=== PATIENT | male | born 1950 | race Hispanic/Latino ===

== ENCOUNTER 2023-10-21 02:02 | Inpatient (IN) | payer SELFPAY ==
[~2023-10-21] VITALS: Ht 175.3 cm; Wt 84.3 kg
[2023-10-21] VITALS (47 sets, daily range): BP systolic 108–183; BP diastolic 60–91; PULSE 75–104; RESP 5–25; TEMP 97.9–98.5; O2SAT 95–100
[2023-10-21 08:58] LABS: HEMATOCRIT 33.8 % (42-54); MEAN CORPUSCULAR HEMOGLOBIN 31.1 pg (27.0-33.0); MEAN CORPUSCULAR HGB CONC 32.8 g/dL (32.0-36.0); MEAN CORPUSCULAR VOLUME 94.7 fL (79-99); RED BLOOD CELL COUNT(AUTO) 3.57 MIL/uL (4.50-6.20); RED CELL DISTRIBUTION WIDTH 14.6 % (11.0-15.5); WHITE BLOOD COUNT (AUTO) 7.3 K/uL (4.8-10.8)
[2023-10-21 09:11] LABS: INR 1.01 (0.85-1.15); PROTHROMBIN TIME 10.9 SEC (9.6-11.6)
[2023-10-21 09:12] LABS: PARTIAL THROMBOPLASTIN TIME 29.7 SEC (26.3-35.5)
[2023-10-21 09:16] LABS: ALBUMIN 2.7 g/dL (3.5-5.0); POTASSIUM 4.2 mmol/L (3.5-5.1); TOTAL PROTEIN, SERUM 6.9 g/dL (6.0-8.3)
[2023-10-21 10:47] LABS: HEMOGLOBIN A1C 5.6 % (4.0-6.0)
[2023-10-21] MEDS ORDERED: acetaMINOPHEN 500 MG TABLET PO PRN (11:00)
[2023-10-21] MEDS ORDERED: POTASSIUM CHLORIDE 20MEQ/100ML 100 ML IV PRN (11:00)
[2023-10-21 11:21] LABS: THYROID STIMULATING HORMONE 115.33 uIU/mL (0.36-3.74)
[2023-10-21] MEDS: levoTHYROxine VIAL 100MCG IV SCH (13:55)
[2023-10-21] MEDS ORDERED: ISOS30TA92 PO (13:56)
[2023-10-21] MEDS ORDERED: NIFE-78 PO (13:56)
[2023-10-21] MEDS ORDERED: CARV6.25 PO (13:56)
[2023-10-21] MEDS ORDERED: AEC81 PO (13:56)
[2023-10-21] MEDS ORDERED: ATOR20TA65 PO (13:56)
[2023-10-21] MEDS ORDERED: RANO500T6 PO (13:56)
[2023-10-21] MEDS: ceFAZolin SODIUM 1 GM VIAL ONE (16:20)
[2023-10-21] MEDS ORDERED: SUCCINYLCHOLINE CHLORIDE 20 MG/ML 10 ML VIAL ONE ×2 (16:25→16:27)
[2023-10-21] MEDS ORDERED: dexaMETHasone SOD PHOSPHATE 10MG/ML 1ML VIAL ONE (16:25)
[2023-10-21] MEDS ORDERED: LIDOCAINE PF 100MG/5ML (2%) SYRINGE 5ML ONE (16:25)
[2023-10-21] MEDS ORDERED: NEOSTIGMINE METHYLSULFATE 1MG/ML IV ONE (16:26)
[2023-10-21] MEDS ORDERED: FENTanyl CITRate PF 50 MCG/1 ML 2ML VIAL ONE ×2 (16:26→17:07)
[2023-10-21] MEDS ORDERED: GLYCOPYRROLATE 0.2 MG/ML 5 ML VIAL ONE (16:26)
[2023-10-21] MEDS ORDERED: proPOFol 10 MG/ML 20ML VIAL IV ONE (16:26)
[2023-10-21] MEDS ORDERED: ETOMIDATE 20MG VIAL ONE (16:27)
[2023-10-21] MEDS ORDERED: rocuRONium bROMide 10MG/1ML 5ML VL ONE (16:27)
[2023-10-21] MEDS ORDERED: traMADol HCL 50 MG TABLET PO PRN (16:30)
[2023-10-21] MEDS ORDERED: ONDANSETRON 4MG INJ ONE (17:03)
[2023-10-21] MEDS ORDERED: hydrALAZine 20MG/ML VIAL ONE (17:12)
[2023-10-21] MEDS: traMADol HCL 50 MG TABLET PO PRN (17:36)
[2023-10-21 17:50] LABS: PH, BODY FLUID 8
[2023-10-21 17:52] LABS: APPEARANCE BODY FLUID TURBID (CLEAR); COLOR,BODY FLUID RED (LT YELLOW); SPECIMENTYPE,BODY FLUID PERICARDIAL; TOTAL VOLUME,BODY FLUID 42 mL
[2023-10-21 18:02] LABS: BODY FLUID RBC 326707 /cu. mm.; BODY FLUID WBC 325 /cu. mm.
[2023-10-21 18:03] LABS: AMYLASE,BODY FLUID 32 U/L; GLUCOSE,BODY FLUID 71 mg/dL (1-40); TOTAL PROTEIN,BODY FLUID 5.1 g/dL
[2023-10-21 18:48] LABS: BF LYMPHOCYTE 26 %; BF MONOCYTE 8 %; BF TOTAL CELLS COUNTED 100
[2023-10-21] MEDS: FAMOTIDINE 20MG VIAL IV SCH (21:37)
[2023-10-21] MEDS: atorVAStatin 20 MG TABLET PO SCH (21:37)
[2023-10-21] MEDS: acetaMINOPHEN 325 MG TAB PO PRN (21:37)
[2023-10-22] VITALS (67 sets, daily range): BP systolic 96–187; BP diastolic 60–88; PULSE 91–115; RESP 10–29; TEMP 97.5–211.8; O2SAT 95–97
[2023-10-22] MEDS: ceFAZolin SODIUM 2 GM VIAL IVPB SCH (00:09)
[2023-10-22] MEDS: PROMETHAZINE HCL 25 MG/ML 1ML AMPULE IM PRN (02:15)
[2023-10-22 04:52] LABS: BASOPHILS # (AUTO) 0.02 K/uL (0.00-0.20); BASOPHILS % (AUTO) 0.1 % (0.0-5.0); HEMATOCRIT 39.7 % (42-54); IMMATURE GRANULOCYTE ABSOLUTE 0.16 K/uL (0-1); LYMPHOCYTES # (AUTO) 0.6 K/uL (1.0-4.8); MEAN CORPUSCULAR HEMOGLOBIN 30.1 pg (27.0-33.0); MEAN CORPUSCULAR VOLUME 91.3 fL (79-99); MONOCYTES # (AUTO) 1.3 K/uL (0.1-1.0); MONOCYTES % (AUTO) 9.4 % (3.0-13.0); NEUTROPHILS # (AUTO) 11.8 K/uL (1.8-7.7); NEUTROPHILS % (AUTO) 85.3 % (40.0-77.0); PLATELET COUNT (AUTO) 286 K/uL (130-400); RED BLOOD CELL COUNT(AUTO) 4.35 MIL/uL (4.50-6.20); RED CELL DISTRIBUTION WIDTH 14.6 % (11.0-15.5); WHITE BLOOD COUNT (AUTO) 13.8 K/uL (4.8-10.8)
[2023-10-22 05:12] LABS: ALBUMIN 2.8 g/dL (3.5-5.0); BILIRUBIN,TOTAL 1.3 mg/dL (0.2-1.0); CREATININE 1.1 mg/dL (0.5-1.3); MAGNESIUM 1.9 mg/dL (1.80-2.40); POTASSIUM 4.5 mmol/L (3.5-5.1); TOTAL PROTEIN, SERUM 7.4 g/dL (6.0-8.3)
[2023-10-22 05:45] LABS: B-TYPE NATRIURETIC PEPTIDE 218 pg/mL (0-100)
[2023-10-22] MEDS ORDERED: acetaMINOPHEN 500 MG TABLET PO PRN (08:30)
[2023-10-22] MEDS: ASPIRIN 81MG CHEW TAB PO SCH (08:41)
[2023-10-22] MEDS: carVEDIlol 6.25 MG TABLET PO SCH (08:42)
[2023-10-22] MEDS: HYDROcodone/APAP 5/325 1 TAB TABLET PO PRN (08:44)
[2023-10-22] MEDS ORDERED: ASPIRIN 81 MG EC TAB PO SCH (09:00)
[2023-10-22] MEDS ORDERED: ENOXAPARIN SODIUM 40 MG/0.4 ML SYRINGE SQ SCH (09:00)
[2023-10-22] MEDS: RANOLAZINE 500 MG TAB.SR.12H PO SCH (09:30)
[2023-10-22] MEDS: ISOSORBIDE MONO 30MG SR TAB PO SCH (09:30)
[2023-10-22] MEDS: hydroCORTisone SOD SUCCINATE 100 MG/2 ML VIAL IV SCH (13:14)
[2023-10-22] MEDS ORDERED: atorVAStatin 20 MG TABLET PO SCH (21:00)
[2023-10-22] MEDS: tamSULOsin HCL 0.4 MG CAP.ER.24H PO SCH (21:02)
[2023-10-23] VITALS (12 sets, daily range): BP systolic 124–158; BP diastolic 73–90; PULSE 65–99; RESP 13–22; TEMP 97.4–98.4; O2SAT 94–96
[2023-10-23 04:59] LABS: BASOPHILS # (AUTO) 0.03 K/uL (0.00-0.20); BASOPHILS % (AUTO) 0.2 % (0.0-5.0); IMMATURE GRANULOCYTE ABSOLUTE 0.26 K/uL (0-1); LYMPHOCYTES # (AUTO) 0.7 K/uL (1.0-4.8); MEAN CORPUSCULAR HEMOGLOBIN 30.3 pg (27.0-33.0); MEAN CORPUSCULAR HGB CONC 32.5 g/dL (32.0-36.0); MEAN CORPUSCULAR VOLUME 93.3 fL (79-99); MONOCYTES # (AUTO) 1.9 K/uL (0.1-1.0); MONOCYTES % (AUTO) 11.1 % (3.0-13.0); NEUTROPHILS # (AUTO) 14.4 K/uL (1.8-7.7); NEUTROPHILS % (AUTO) 83.2 % (40.0-77.0); PLATELET COUNT (AUTO) 255 K/uL (130-400); RED BLOOD CELL COUNT(AUTO) 3.86 MIL/uL (4.50-6.20); RED CELL DISTRIBUTION WIDTH 14.3 % (11.0-15.5); WHITE BLOOD COUNT (AUTO) 17.3 K/uL (4.8-10.8)
[2023-10-23 05:20] LABS: ALBUMIN 2.3 g/dL (3.5-5.0); CREATININE 1.5 mg/dL (0.5-1.3); MAGNESIUM 1.9 mg/dL (1.80-2.40); POTASSIUM 4.5 mmol/L (3.5-5.1); THYROID STIMULATING HORMONE 55.75 uIU/mL (0.36-3.74)
[2023-10-23] MEDS: MAGNESIUM 2GM PREMIX 50ML 50 ML IV PRN (05:49)
[2023-10-23] MEDS: NIFEDIPINE ER 30 MG TAB PO SCH (09:15)
[2023-10-23] MEDS: doCUSate SODIUM 100 MG CAP PO ONE (12:01)
[2023-10-23] MEDS: LACTULOSE 20 GM/30 ML UDCUP PO ONE (12:01)
[2023-10-23] MEDS: polyETHYLene GLYCol 3350 17 GM POWD.PACK PO ONE (12:02)
[2023-10-23] MEDS: LACTULOSE 20 GM/30 ML UDCUP PO PRN (17:55)
[2023-10-24] VITALS (10 sets, daily range): BP systolic 111–130; BP diastolic 62–72; PULSE 78–90; RESP 14–20; TEMP 97.7–98.5; O2SAT 97–100
[2023-10-24 04:05] LABS: BASOPHILS # (AUTO) 0.03 K/uL (0.00-0.20); BASOPHILS % (AUTO) 0.2 % (0.0-5.0); HEMATOCRIT 35.7 % (42-54); IMMATURE GRANULOCYTE ABSOLUTE 0.34 K/uL (0-1); LYMPHOCYTES # (AUTO) 0.6 K/uL (1.0-4.8); LYMPHOCYTES % (AUTO) 3.9 % (21.0-51.0); MEAN CORPUSCULAR HEMOGLOBIN 30.6 pg (27.0-33.0); MEAN CORPUSCULAR HGB CONC 33.9 g/dL (32.0-36.0); MEAN CORPUSCULAR VOLUME 90.4 fL (79-99); MONOCYTES # (AUTO) 0.9 K/uL (0.1-1.0); MONOCYTES % (AUTO) 5.8 % (3.0-13.0); NEUTROPHILS # (AUTO) 13.8 K/uL (1.8-7.7); NEUTROPHILS % (AUTO) 87.9 % (40.0-77.0); PLATELET COUNT (AUTO) 267 K/uL (130-400); RED BLOOD CELL COUNT(AUTO) 3.95 MIL/uL (4.50-6.20); RED CELL DISTRIBUTION WIDTH 14.2 % (11.0-15.5); WHITE BLOOD COUNT (AUTO) 15.7 K/uL (4.8-10.8)
[2023-10-24 04:31] LABS: ALBUMIN 2.3 g/dL (3.5-5.0); BILIRUBIN,TOTAL 0.6 mg/dL (0.2-1.0); CREATININE 1.2 mg/dL (0.5-1.3); POTASSIUM 4.6 mmol/L (3.5-5.1); TOTAL PROTEIN, SERUM 7.1 g/dL (6.0-8.3)
[2023-10-24] MEDS: polyETHYLene GLYCol 3350 17 GM POWD.PACK PO SCH (08:11)
[2023-10-24] MEDS: BisaCODYL 10 MG SUPP.RECT RC PRN (18:12)
[2023-10-24] MEDS: FAMOTIDINE 20MG TAB PO SCH (20:22)
[2023-10-25] VITALS (7 sets, daily range): BP systolic 108–132; BP diastolic 65–78; PULSE 62–76; RESP 18; TEMP 97.8–98.4; O2SAT 96–97
[2023-10-25 03:48] LABS: BASOPHILS # (AUTO) 0.02 K/uL (0.00-0.20); BASOPHILS % (AUTO) 0.1 % (0.0-5.0); HEMATOCRIT 30.6 % (42-54); IMMATURE GRANULOCYTE ABSOLUTE 0.28 K/uL (0-1); LYMPHOCYTES # (AUTO) 0.7 K/uL (1.0-4.8); LYMPHOCYTES % (AUTO) 5.1 % (21.0-51.0); MEAN CORPUSCULAR HEMOGLOBIN 30.3 pg (27.0-33.0); MEAN CORPUSCULAR HGB CONC 33.7 g/dL (32.0-36.0); MONOCYTES # (AUTO) 0.9 K/uL (0.1-1.0); MONOCYTES % (AUTO) 6.3 % (3.0-13.0); NEUTROPHILS # (AUTO) 11.7 K/uL (1.8-7.7); NEUTROPHILS % (AUTO) 86.4 % (40.0-77.0); PLATELET COUNT (AUTO) 261 K/uL (130-400); RED CELL DISTRIBUTION WIDTH 14.3 % (11.0-15.5); WHITE BLOOD COUNT (AUTO) 13.6 K/uL (4.8-10.8)
[2023-10-25 04:09] LABS: ALBUMIN 2.1 g/dL (3.5-5.0); BILIRUBIN,TOTAL 0.6 mg/dL (0.2-1.0); CREATININE 1.2 mg/dL (0.5-1.3); POTASSIUM 4.3 mmol/L (3.5-5.1); TOTAL PROTEIN, SERUM 6.2 g/dL (6.0-8.3)
[2023-10-25] MEDS: levoTHYROxine 100 MCG TABLET PO SCH (06:03)
[2023-10-26] VITALS (8 sets, daily range): BP systolic 108–137; BP diastolic 65–74; PULSE 66–92; RESP 16–22; TEMP 97.6–98.4; O2SAT 97
[2023-10-26 03:45] LABS: HEMATOCRIT 35.2 % (42-54); MEAN CORPUSCULAR HEMOGLOBIN 30.6 pg (27.0-33.0); MEAN CORPUSCULAR HGB CONC 33.8 g/dL (32.0-36.0); MEAN CORPUSCULAR VOLUME 90.5 fL (79-99); RED BLOOD CELL COUNT(AUTO) 3.89 MIL/uL (4.50-6.20); RED CELL DISTRIBUTION WIDTH 14.6 % (11.0-15.5); WHITE BLOOD COUNT (AUTO) 9.3 K/uL (4.8-10.8)
[2023-10-26 04:00] LABS: ALBUMIN 2.2 g/dL (3.5-5.0); BILIRUBIN,TOTAL 0.5 mg/dL (0.2-1.0); CREATININE 1.1 mg/dL (0.5-1.3); TOTAL PROTEIN, SERUM 6.4 g/dL (6.0-8.3)
[2023-10-26] MEDS: furoSEMIDE 20 MG TABLET PO ONE (12:38)
[2023-10-26] MEDS: REGADENOSON 0.4 MG/5 ML PF SYG IVP SCH (18:00)
[2023-10-27] VITALS (8 sets, daily range): BP systolic 116–133; BP diastolic 63–79; PULSE 72–91; RESP 16–20; TEMP 97.6–98.9; O2SAT 96–98
[2023-10-27] MEDS: furoSEMIDE 20 MG TABLET PO SCH (08:30)
[2023-10-28] VITALS (15 sets, daily range): BP systolic 107–141; BP diastolic 63–74; PULSE 69–87; RESP 18; TEMP 97.6–98.9; O2SAT 96–98
[2023-10-28 04:17] LABS: BASOPHILS # (AUTO) 0.08 K/uL (0.00-0.20); BASOPHILS % (AUTO) 0.7 % (0.0-5.0); EOSINOPHILS % (AUTO) 0.9 % (0.0-8.0); HEMATOCRIT 33.5 % (42-54); IMMATURE GRANULOCYTE ABSOLUTE 1.17 K/uL (0-1); LYMPHOCYTES # (AUTO) 1.7 K/uL (1.0-4.8); LYMPHOCYTES % (AUTO) 15.3 % (21.0-51.0); MEAN CORPUSCULAR HEMOGLOBIN 30.1 pg (27.0-33.0); MEAN CORPUSCULAR HGB CONC 33.4 g/dL (32.0-36.0); MEAN CORPUSCULAR VOLUME 90.1 fL (79-99); MONOCYTES # (AUTO) 1.2 K/uL (0.1-1.0); NEUTROPHILS # (AUTO) 6.8 K/uL (1.8-7.7); NEUTROPHILS % (AUTO) 61.5 % (40.0-77.0); PLATELET COUNT (AUTO) 271 K/uL (130-400); RED BLOOD CELL COUNT(AUTO) 3.72 MIL/uL (4.50-6.20); RED CELL DISTRIBUTION WIDTH 14.4 % (11.0-15.5); WHITE BLOOD COUNT (AUTO) 11.1 K/uL (4.8-10.8)
[2023-10-28 04:36] LABS: ALBUMIN 2.1 g/dL (3.5-5.0); BILIRUBIN,TOTAL 0.3 mg/dL (0.2-1.0); CREATININE 1.2 mg/dL (0.5-1.3); POTASSIUM 3.8 mmol/L (3.5-5.1)
[2023-10-28 04:43] LABS: B-TYPE NATRIURETIC PEPTIDE 43 pg/mL (0-100)
[2023-10-28] MEDS ORDERED: HEParin-NS 1,000 UNIT/500 ML 1,000 ML IV ONE (10:24)
[2023-10-28] MEDS ORDERED: VERAPAMIL HCL 2.5 MG/ML VIAL ONE (10:24)
[2023-10-28] MEDS ORDERED: LIDOCAINE HCL 400MG/20ML VIAL ONE (10:24)
[2023-10-28] MEDS ORDERED: IOHEXOL 350 MG/ML 100ML INFUS..BTL IV ONE (10:24)
[2023-10-28] MEDS ORDERED: NITROGLYCERIN 50MG VIAL ONE (10:25)
[2023-10-28] MEDS ORDERED: HEParin 10,000 UNIT/10ML (1,000 UNIT/ML) VIAL ONE (10:38)
[2023-10-28] MEDS ORDERED: FENTanyl CITRate PF 50 MCG/1 ML 2ML VIAL ONE (11:04)
[2023-10-28] MEDS ORDERED: MIDAZOLAM HCL 1 MG/ML 2ML VIAL ONE (11:05)
[2023-10-28] MEDS: 0.9%NACL 1000ML 1,000 ML IV SCH (12:00)
[2023-10-29 03:28] VITALS: BP 116/58; PULSE 68; RESP 18; TEMP 98.1
[2023-10-29 04:01] LABS: HEMATOCRIT 33.4 % (42-54); MEAN CORPUSCULAR HEMOGLOBIN 30.3 pg (27.0-33.0); MEAN CORPUSCULAR HGB CONC 32.9 g/dL (32.0-36.0); RED BLOOD CELL COUNT(AUTO) 3.63 MIL/uL (4.50-6.20); RED CELL DISTRIBUTION WIDTH 14.5 % (11.0-15.5); WHITE BLOOD COUNT (AUTO) 10.5 K/uL (4.8-10.8)
[2023-10-29 04:17] LABS: ALBUMIN 2.1 g/dL (3.5-5.0); BILIRUBIN,TOTAL 0.3 mg/dL (0.2-1.0); CREATININE 1.1 mg/dL (0.5-1.3); POTASSIUM 3.9 mmol/L (3.5-5.1); TOTAL PROTEIN, SERUM 5.7 g/dL (6.0-8.3)
[2023-10-29 07:00] VITALS: BP 122/66; PULSE 75; RESP 20; TEMP 98.5
[2023-10-29 08:00] VITALS: O2SAT 97
[2023-10-29] MEDS ORDERED: NITR0.4T50 SL (10:26)
[2023-10-29] MEDS ORDERED: FURO20TA6 PO (10:26)
[2023-10-29] MEDS ORDERED: LEVO100T4 PO (10:26)
[2023-10-29] MEDS ORDERED: TAMS-1 PO (10:26)
[2023-10-29 11:00] VITALS: BP 125/64; PULSE 83; RESP 20; TEMP 98
== END 2023-10-29 16:00 | disposition home or self-care (01) | DRG 271 ==
LOC: 2CH 07:15 → 2DH 10-25 06:50
PROVIDERS: ADMIT Internal Medicine; ATTEND Internal Medicine
PROC: 0PB00ZZ Excision of Sternum, Open Approach (ICD-10-PCS; 2023-10-21)
PROC: 02BN0ZZ Excision of Pericardium, Open Approach (ICD-10-PCS; principal; 2023-10-21 16:00)
PROC: 4A12XM4 Monitoring of Cardiac Stress, External Approach (ICD-10-PCS; 2023-10-27)
PROC: 3E073KZ Introduction of Other Diagnostic Substance into Coronary Artery, Percutaneous Approach (ICD-10-PCS; 2023-10-27)
PROC: 4A023N7 Measurement of Cardiac Sampling and Pressure, Left Heart, Percutaneous Approach (ICD-10-PCS; 2023-10-28)
PROC: B2111ZZ Fluoroscopy of Multiple Coronary Arteries using Low Osmolar Contrast (ICD-10-PCS; 2023-10-28)
PROC: 4A033BC Measurement of Arterial Pressure, Coronary, Percutaneous Approach (ICD-10-PCS; 2023-10-28)
DX: I31.39 Other pericardial effusion (noninflammatory) (principal); J90 Pleural effusion, not elsewhere classified; I25.10 Atherosclerotic heart disease of native coronary artery without angina pectoris; I31.4 Cardiac tamponade; I10 Essential (primary) hypertension; E78.5 Hyperlipidemia, unspecified; E78.00 Pure hypercholesterolemia, unspecified; D64.9 Anemia, unspecified; E87.70 Fluid overload, unspecified; D72.829 Elevated white blood cell count, unspecified; E89.0 Postprocedural hypothyroidism; I45.10 Unspecified right bundle-branch block; J98.4 Other disorders of lung; N40.1 Benign prostatic hyperplasia with lower urinary tract symptoms; K59.00 Constipation, unspecified; Z79.82 Long term (current) use of aspirin; Z85.038 Personal history of other malignant neoplasm of large intestine; Z95.0 Presence of cardiac pacemaker; Z79.899 Other long term (current) drug therapy; Z82.49 Family history of ischemic heart disease and other diseases of the circulatory system; Z87.891 Personal history of nicotine dependence; Z91.148 Patient's other noncompliance with medication regimen for other reason; Z91.199 Patient's noncompliance with other medical treatment and regimen due to unspecified reason
CPT/HCPCS: 36415; 71045; 78452; 80053; 82150; 82945; 82948; 83036; 83615; 83735; 83880; 83986; 84145; 84157; 84439; 84443; 84481; 85025; 85027; 85610; 85730; 86140; 86850; 86900; 86901; 87071; 87076; 87116; 87205; 87206; 88112; 88305; 89051; 93017; 93458; 93571; 99156; 99157; A4344; A7048; A9500; C1769; G0378; J0330; J0360; J0690; J1100; J1644; J1720; J2001; J2250; J2405; J2550; J2704; J2710; J2785; J3010; J3475; J3490; J7030; J7040; Q9967; A4600; A4649; A6219; C1713; C1887; C1894; G0168; Q9965